=== PATIENT | male | born 1945 | race Caucasian/White ===

== ENCOUNTER 2018-12-05 06:05 | Emergency (ER) | payer OTHER, MEDICARE ==
[2018-12-05] MEDS ORDERED: KETOROLAC 30 MG INJ IM (11:02)
[2018-12-05] MEDS: KETOROLAC 15 MG INJ IM (11:21)
== END 2018-12-05 11:41 | disposition home or self-care (01) ==
LOC: FTE 06:05
DX: S32.050A Wedge compression fracture of fifth lumbar vertebra, initial encounter for closed fracture (principal); I10 Essential (primary) hypertension; E11.9 Type 2 diabetes mellitus without complications; X58.XXXA Exposure to other specified factors, initial encounter; Y92.9 Unspecified place or not applicable; Z79.4 Long term (current) use of insulin; Z79.82 Long term (current) use of aspirin
CPT/HCPCS: 72131; 96372; 99285-25